=== PATIENT | male | born 1960 | race Caucasian/White ===

== ENCOUNTER 2019-11-27 11:47 | Day surgery (SDC) | payer MEDICARE ==
[2019-11-07 11:55] VITALS: BMI 38.6
[2019-11-27] MEDS ORDERED: EPINEPHrine 1:1,000 1 MG/1 ML - 30ML VIAL (INJECTION) ONE (14:03)
[2019-11-27] MEDS ORDERED: MIDAZOLAM HCL 2 MG/2 ML SINGLE DOSE VIAL ONE (14:25)
[2019-11-27] MEDS ORDERED: ROPIVACAINE HCL 0.5% 30ML VIAL ONE (14:25)
[2019-11-27] MEDS ORDERED: ONDANSETRON 4 MG/2 ML VIAL IVPUSH PRN (15:35)
[2019-11-27] MEDS ORDERED: ACETAMINOPHEN 325 MG TABLET (FP) PO PRN (15:35)
[2019-11-27] MEDS ORDERED: oxyCODONE HCL 5 MG TABLET PO PRN (15:35)
[2019-11-27] MEDS ORDERED: PROPOFOL 20 ML ONE (15:44)
[2019-11-27] MEDS ORDERED: LACTATED RINGERS SOLUTION 1,000 ML IV SCH (15:45)
[2019-11-27] MEDS ORDERED: ceFAZolin SODIUM 1 GM VIAL ONE (15:55)
[2019-11-27] MEDS ORDERED: DEXAMETHASONE SOD PHOSPHATE 4 MG/1 ML VIAL ONE (15:58)
[2019-11-27] MEDS ORDERED: ePHEDrine SULFATE 50 MG/1 ML AMPULE ONE (16:37)
[2019-11-27] MEDS ORDERED: ONDANSETRON 4 MG/2 ML VIAL ONE (17:28)
[2019-11-27 17:42] VITALS: TEMP 97.5
[2019-11-27 19:23] VITALS: BP 133/82; PULSE 64
--- NOTE | 2019-11-28 14:28 | OP ---
DATE OF OPERATION: 11/27/2019 PREOPERATIVE DIAGNOSIS: Left shoulder supraspinatus rotator cuff tear. POSTOPERATIVE DIAGNOSES: 1. Left shoulder supraspinatus rotator cuff tear full-thickness. 2. Left shoulder subacromial impingement syndrome. 3. Left shoulder glenohumeral joint synovitis and labral tearing. OPERATIVE PROCEDURES: 1. Left shoulder arthroscopic rotator cuff repair. 2. Left shoulder glenohumeral joint complete debridement. 3. Left shoulder arthroscopic subacromial decompression with anterior inferior acromioplasty. SURGEON: Yumiko Acharya MD SUPERINTENDENT MENAGERIE: REID Mackay ANESTHESIA: Regional and general. COMPLICATIONS: None. ESTIMATED BLOOD LOSS: Minimal. INDICATIONS FOR PROCEDURE: The patient is a 59-year-old male with the above finding indicated for operative treatment. Risks, benefits and alternatives were discussed with the patient at length and proper informed consent was obtained. PROCEDURE: After proper identification of the patient and the correct operative site, patient was brought to the operating room where general and regional anesthesia had been given. Intravenous antibiotics were given. Patient was placed in the beach chair position with in-line cervical positioning and all points of contacts well-padded. Arthroscopy was performed through posterior, anterior and lateral portals. All portals were made with the skin incision only with blunt dissection down to the joint capsule. Glenohumeral joint was observed and found to have moderate synovitis and fraying of the labrum. This was debrided with the mechanical shaver. Subscapularis was intact. Anterior ligaments were intact. The biceps tendon as well as its anchor were intact, except for some fraying at the insertion that was debrided mechanically. The extraarticular portion of the biceps was brought into the joint and found to be free of any defects or tears. Glenohumeral joint was found to have very mild chondromalacia, but otherwise was normal in appearance. No loose bodies were found in the axillary pouch. Rotator cuff was observed and the posterior aspects were intact and there was a full-thickness tear of the anterior most aspect of the supraspinatus tendon. This is a full-thickness tear measuring anterior to posterior dimensions of less than 1 cm and not retracted. This was debrided with the mechanical shaver. Arthroscope was then introduced into the subacromial space where sever bursitis was noted and this was debrided with the ArthroWand. A large anterior inferior subacromial spur was also noted and anterior inferior acromioplasty was performed with the shaver. The rotator cuff tear was again observed on the bursal surface and mild tendinosis was also noted. The remainder of the rotator cuff had moderate tendinosis, as well as had been noted on the remainder of the rotator cuff on the bursal surface and this was debrided. The greater tuberosity was prepared for repair by debriding it down to healthy bone. The Arthrex swivel lock anchor was then placed at the articular margin and FiberTape suture was passed through the rotator cuff anteriorly and posteriorly at the tear. This was then attached for a tension-free double row equivalent repair with a second swivel lock anchor laterally. This provided secure stable watertight repair of the rotator cuff without any tension on the repair. The shoulder was taken through a range of motion and there was no instability of the repair and no further impingement. The wounds were irrigated and repaired with 5-0 nylon sutures. Sterile dressings were applied. Sling was placed. Patient was reversed from anesthesia and brought to the recovery room in stable condition. He tolerated the procedure well. Nadeem Pedraza, the tmd teacher assistant, was integral throughout the procedure. The procedure could not have been performed without a skilled operative tmd teacher assistant. YUMIKO ACHARYA M.D. [id number]
== END 2019-11-27 19:15 | disposition home or self-care (01) ==
LOC: FASU 11:47
PROVIDERS: ATTEND Orthopaedic Surgery Hand Surgery
PROC: 0RBK4ZZ Excision of Left Shoulder Joint, Percutaneous Endoscopic Approach (ICD-10-PCS; 2019-11-27)
PROC: 0LQ24ZZ Repair Left Shoulder Tendon, Percutaneous Endoscopic Approach (ICD-10-PCS; principal; 2019-11-27 16:07)
PROC: 0RNK4ZZ Release Left Shoulder Joint, Percutaneous Endoscopic Approach (ICD-10-PCS; 2019-11-27 16:07)
DX: M75.122 Complete rotator cuff tear or rupture of left shoulder, not specified as traumatic (principal); M75.42 Impingement syndrome of left shoulder; M65.812 Other synovitis and tenosynovitis, left shoulder; M24.112 Other articular cartilage disorders, left shoulder
CPT/HCPCS: 82962; 94760